=== PATIENT | female | born 1950 | race American Indian/Alaskan Native ===

== ENCOUNTER 2017-01-12 14:18 | Outpatient (CLI) | payer BC ==
--- NOTE | 2017-01-12 15:24 | Mammography Report ---
Bilateral diagnostic digital mammogram with CAD. History: Status post right surgical biopsy for indeterminate calcifications with benign pathology. No prior studies are available comparison. Findings: At the site of surgery in the upper outer quadrant of the right breast, there is architectural distortion with mild increased density. There is scattered round benign-appearing calcifications with no suspicious residual microcalcifications. The left breast demonstrates scattered fibroglandular densities with no suspicious focal findings. Impression: Probable postoperative architectural distortion in the upper-outer quadrant of the right breast. BI-RADS code: 3. Recommendation: A six-month followup right mammogram is recommended to ensure stability.
== END 2017-01-12 14:19 | disposition home or self-care (01) ==
LOC: SPVWC 14:18
PROVIDERS: ATTEND Surgery
DX: R92.0 Mammographic microcalcification found on diagnostic imaging of breast (principal)
CPT/HCPCS: 77066; G0204